=== PATIENT | female | born 1945 | race African-American/Black ===

== ENCOUNTER 2018-01-07 07:46 | Outpatient (CLI) | payer MEDICARE ==
--- NOTE | 2018-01-07 09:58 | CT ---
CT PULMONARY LUNG SCAN: Date: 01/07/18 HISTORY: Z12.2, encounter for screening for malignant neoplasm. COMPARISON: None. FINDINGS: Lung Screening Specifics (Lung-RADS): In the left upper lobe, there is a 5.0 x 6.0 x 5.0 mm fascicul ated nodule. No other suspicious pulmonary nodule is appreciated. Potentially Significant Incidentals (Lung-RADS Category S): Negative. Pulmonary Incidentals: Severe pulmonary emphysema. Mild bronchiectasis. Skeleton: No fracture. No malalignment. No suspicious lytic or blastic lesion. IMPRESSION: 1. Lung-RADS Category 3: Probably benign. Recommendation of a 6 month follow-up low dose CT of the 6.0 mm nodule left upper lobe. 2. Lung-RADS Category S: Negative. No new or suspicious findings requiring urgent additional evalua tion. 3. Other Incidentals: Moderate atherosclerotic plaque. POS: AILYN
== END 2018-01-07 07:47 | disposition home or self-care (01) ==
LOC: CT 07:46
PROVIDERS: ATTEND Internal Medicine Sleep Medicine
DX: Z12.2 Encounter for screening for malignant neoplasm of respiratory organs (principal); F17.210 Nicotine dependence, cigarettes, uncomplicated; I70.90 Unspecified atherosclerosis; R91.1 Solitary pulmonary nodule
CPT/HCPCS: G0297

== ENCOUNTER 2019-09-09 06:02 | Day surgery (SDC) | payer MEDICARE ==
[2019-09-08 11:23] VITALS: BMI 19.1
[2019-09-09] MEDS ORDERED: Bupivacaine PF 0.5% 30 ML VIAL ONE (06:48)
[2019-09-09] MEDS ORDERED: EPINEPHrine 1 MG/ML AMP ONE (06:48)
[2019-09-09] MEDS ORDERED: Fentanyl 100 MCG/2 ML VIAL ONE (06:56)
--- NOTE | 2019-09-09 07:06 | HP ---
HISTORY: Carmelita Canales is a very pleasant 74-year-old female with severe COPD, oxygen-dependent. The patient was seen by me almost a month ago with nausea, vomiting, and progressive weight loss. She lost more than 30 pounds. She is severely dehydrated. She was hospitalized at [facility] a month ago. She was rehydrated and underwent EGD, found to have an obstructing esophageal cancer of distal esophagus. Had gone for esophageal dilation. The stricture is very tight and nonyielding. Then she underwent balloon dilatation. Subsequently, she had dilation with Savary dilator sizes 9, 10, 11-Greenlandic. The lumen is very tight and could not completely open. The plan was dilation and PEG tube placement. However, unfortunately this could not be accomplished few days ago. The patient was advised to come back today for repeat EGD and dilation and possible PEG tube placement. The family and the patient were informed that if endoscopic PEG tube placement is not possible, she might need a laparoscopy-assisted G-tube placement. I did talk to Dr. Major Anderson and he is aware of this situation and he is available to go with the laparoscopy-assisted G-tube placement in case the endoscopic approach is not possible. ALLERGIES: SALAZAR INHIBITORS. MEDICAL ILLNESS: 1. Hypertension. 2. COPD. 3. Gout. 4. Hyperlipidemia. 5. Osteoarthritis. PHYSICAL EXAMINATION: GENERAL: She is thin built. VITAL SIGNS: Her weight is 120, pulse 76_blood pressure 120/78_ . CARDIOVASCULAR SYSTEM: First and second heart sounds normal. LUNGS: Clear to auscultation. ABDOMEN: soft, non tender, no masses_ EXTREMITIES: Reveal no edema. ADMITTING DIAGNOSES: 1. Esophageal obstruction. 2. Malignant esophageal stricture. 3. Weight loss. 4. Chronic obstructive pulmonary disease. PLAN: EGD and dilation of the malignant esophageal stricture_If the stricture can be dilated adequately, will place G tube. If it is not possible, patient will have laparoscopy- assisted G-tube placement by Dr. Anderson. Job ID: [id number] [facility]
[2019-09-09] MEDS ORDERED: Sodium Chloride 0.9% 0 ML ONE (08:55)
--- NOTE | 2019-09-09 10:43 | HP ---
SUBJECTIVE: Carmelita Canales is a 74-year-old black female with esophageal cancer that Dr. Lu has biopsied and on several occasions, attempted dilatation and PEG tube placement at [facility]. She now consents to PEG tube and Dr. Lu has asked me to be on standby for laparoscopic gastrostomy in the case that he cannot gain access to the esophagus. I have talked to the patient and the patient has seen Dr. Samuels and Dr. Chin. I communicated with Dr. Chin this morning and he does need a MediPort. I have discussed with the patient placement of a MediPort and she consents to placement of a MediPort. ALLERGIES: NONE. SOCIAL HISTORY: Tobacco, none for many years. Alcohol, none. MEDICATIONS: 1. Allopurinol. 2. Amlodipine. 3. Aspirin. 4. Atorvastatin. 5. Insulin. 6. Myrbetriq. 7. Montelukast. 8. Sodium. 9. Protonix. 10. Symbicort. PAST SURGICAL HISTORY: Urinary cyst surgery of some sort. PAST MEDICAL HISTORY: Insulin-dependent diabetes mellitus, 5 units subcu insulin a.m., held this morning. COPD, on inhalers p.r.n. Gout. Arthritis. Esophageal cancer, most recently diagnosed. The patient has lost from 140 pounds to 114 pounds. REVIEW OF SYSTEMS: Ten-point noncontributory. FAMILY HISTORY: Noncontributory. PHYSICAL EXAMINATION: VITAL SIGNS: Temperature 98.5, pulse 71, respiratory rate 18, and blood pressure 118/67. HEAD, EARS, EYES, NOSE, AND THROAT: Unremarkable. LUNGS: Clear to auscultation. CARDIAC: Regular rate and rhythm without murmur or gallop. ABDOMEN: Soft and nontender. No mass. EXTREMITIES: Unremarkable. She is cachectic and malnourished. No ankle edema. COVID negative. ASSESSMENT AND PLAN: 1. Esophageal cancer with malnutrition, weight loss, in need of IV access, antineoplastic chemotherapy access. I have discussed with Dr. Chin and she is in need of a MediPort. Plan, placement of a MediPort and if necessary, laparoscopic gastrostomy tube. I have talked to Dr. Lu, he is unable to secure her PEG tube. The patient is having trouble even swallowing her saliva at this time. 2. Insulin-dependent diabetes mellitus. 3. Gout. 4. Chronic obstructive pulmonary disease. 5. History of tobacco use decades ago. 6. Malnourishment. 7. Weight loss. Job ID: [id number]
[2019-09-09] MEDS ORDERED: Hydrocodone-Acetamin 15 ML UDCUP ONE (10:57)
[2019-09-09] MEDS ORDERED: Morphine 2 MG/ML SYRINGE ONE (11:23)
--- NOTE | 2019-09-09 11:52 | RAD ---
PORTABLE CHEST: HISTORY: MediPort placement. COMPARISON: No recent comparison. FINDINGS: An ET tube is in place with tip well above pardeep. A central line MediPort-type catheter has been placed via the right subclavian vein. This line overl ies the SVC with tip at the right atrium. The lungs appear clear of infiltrate. Heart size upper normal. Mild vascular engorgement. IMPRESSION: No acute process. Central line appears adequately positioned. POS: AGW
[2019-09-09] MEDS ORDERED: Succinylcholine Chloride 20 MG/ML 10 ml SYRINGE FS ONE (12:21)
[2019-09-09] MEDS ORDERED: PHENYLEPHRINE-NS 100 MCG/ML 10 ML SYRINGE ONE (12:21)
[2019-09-09] MEDS ORDERED: PROPOFOL 200 MG/20 ML VIAL ONE (12:21)
[2019-09-09] MEDS ORDERED: Ondansetron PF 4 MG/2 ML Vial ONE (12:21)
--- NOTE | 2019-09-09 14:46 | OP ---
DATE OF PROCEDURE: 09/09/2019 PROCEDURES PERFORMED: 1. Esophagogastroduodenoscopy. 2. Esophageal dilation at a size 12.8 cm with Savary dilators over the guidewire. 3. Percutaneous endoscopic gastrostomy tube placement. PREOPERATIVE DIAGNOSES: 1. Esophageal obstruction. 2. Malignant esophageal stricture. POSTOPERATIVE DIAGNOSES: 1. Esophageal obstruction. 2. Malignant esophageal stricture. DESCRIPTION OF PROCEDURE: The patient was intubated and was given sedation by Anesthesia Department. The patient was transferred to the fluoroscopy table. She was placed on the left lateral position. A Pentax video gastroscope under direct vision passed down the oropharynx past the upper esophageal sphincter into the esophagus. There was esophageal obstruction. The patient had a very tight esophageal stricture. The scope could not be advanced into the stomach. A Savary guidewire was placed into the stomach under fluoroscopy control. Fluoroscopy was used throughout the procedure to monitor the advancement of the Savary dilators. The Savary dilator sizes 11, 12, and subsequently 12.8 cm passed down over the guidewire under fluoroscopic guidance. There was mild resistance encountered.. Following the dilatation, the guidewire removed. The patient was re-scoped again. At this time, I was able to get the scope into the stomach. The esophageal lumen was still very tight. In the fundus and cardia, no pathology. In the gastric body, gastric antrum, and duodenum, no lesions. A G-tube site was marked by the transillumination within. The site was surgically cleaned and prepped. The site was anesthetized with 1% Xylocaine infiltration. Over the site, a size 16 Angiocath was advanced into the stomach. Through the Angiocath, a guidewire was advanced into the stomach. This was grasped with polypectomy snare and pulled outside the mouth. Through the end of the guidewire protruding outside the mouth, a gastrostomy tube was connected. The wire was pulled back retrograde, and the tube was left in place. The patient was re-scoped again to confirm proper placement of G-tube. No complication noted except for mild oozing of blood. The stomach decompressed and the scope removed. PLAN: The patient will have a Mediport catheter placement later on today and will be discharged home later on. She will be instructed how to use feeding tube before discharge. Job ID: [id number] [facility]
--- NOTE | 2019-09-09 15:30 | OP ---
DATE OF PROCEDURE: 09/09/2019 PREOPERATIVE DIAGNOSES: 1. Malnutrition. 2. Esophageal cancer. 3. Weight loss. 4. Esophageal obstruction symptoms. POSTOPERATIVE DIAGNOSES: 1. Malnutrition. 2. Esophageal cancer. 3. Weight loss. 4. Esophageal obstruction symptoms. PROCEDURES PERFORMED: 1. Low-profile MediPort, right subclavian vein. 2. X-ray use for placement (fluoroscopy unavailable). Note, Dr. Lu was able to place a PEG tube and a laparoscopic gastrostomy tube was not necessary on my part. DESCRIPTION OF PROCEDURE: The patient was taken to the operating room where under general anesthesia, after Dr. Lu had placed a PEG tube and after esophageal dilatation, her chest, shoulder, and neck were prepared with ChloraPrep and draped in routine fashion. Local anesthetic mixture of 0.5% Marcaine with epinephrine 30 mL infiltrated in the skin and subcutaneous tissue over the right chest and infraclavicular area, and trocar catheter cannulated in the subclavian vein, J-wire threaded, trocar catheter removed. Skin site was sharply and a subcutaneous pocket created with blunt and sharp dissection, noting good hemostasis. Dilator and Peel-Away sheath were placed over the J-wire in the subclavian vein. J-wire and dilator removed. Catheter placed with Peel-Away sheath, properly positioned, Peel-Away sheath removed. Fluoroscopically, the tip of the catheter was placed in optimal position in the superior vena cava, catheter was tailored to length, connected to the MediPort, placed in the subcutaneous pocket and secured with 2 interrupted sutures of 3-0 Prolene, and subcutaneous tissue was approximated with 3-0 Monocryl, and skin with subdermal 4-0 Monocryl. Chest x-ray obtained, revealed good MediPort and line placement. Buckley needle accessed the MediPort percutaneously and good return of venous blood obtained and MediPort flushed with heparinized saline solution. Sterile dressing applied and Dermabond. The patient tolerated the procedure well. Job ID: [id number]
== END 2019-09-09 14:45 | disposition home or self-care (01) ==
LOC: SDC 06:02
PROVIDERS: ATTEND Internal Medicine Gastroenterology
PROC: 0DH63UZ Insertion of Feeding Device into Stomach, Percutaneous Approach (ICD-10-PCS; principal; 2019-09-09)
PROC: 0D758ZZ Dilation of Esophagus, Via Natural or Artificial Opening Endoscopic (ICD-10-PCS; 2019-09-09)
PROC: 0JH60WZ Insertion of Totally Implantable Vascular Access Device into Chest Subcutaneous Tissue and Fascia, Open Approach (ICD-10-PCS; 2019-09-09)
PROC: 05H533Z Insertion of Infusion Device into Right Subclavian Vein, Percutaneous Approach (ICD-10-PCS; 2019-09-09)
PROC: B516ZZA Fluoroscopy of Right Subclavian Vein, Guidance (ICD-10-PCS; 2019-09-09)
DX: C15.5 Malignant neoplasm of lower third of esophagus (principal); K22.2 Esophageal obstruction; E11.9 Type 2 diabetes mellitus without complications; J44.9 Chronic obstructive pulmonary disease, unspecified; I10 Essential (primary) hypertension; M10.9 Gout, unspecified; E78.5 Hyperlipidemia, unspecified; M19.90 Unspecified osteoarthritis, unspecified site; E46 Unspecified protein-calorie malnutrition; Z68.1 Body mass index [BMI] 19.9 or less, adult; Z87.891 Personal history of nicotine dependence; Z79.4 Long term (current) use of insulin; Z79.82 Long term (current) use of aspirin; Z79.899 Other long term (current) drug therapy; Z99.81 Dependence on supplemental oxygen
CPT/HCPCS: 36561; 43246; 43248; 71045; 82962; C1788; 36416; J0171; J0690; J1642; J2270; J2405; J2704; J3010; S0020

== ENCOUNTER 2019-10-26 10:34 | Day surgery (SDC) | payer MEDICARE ==
[2019-10-26] MEDS ORDERED: diphenhydrAMINE 25 MG CAP PO PRN (10:52)
[2019-10-26] MEDS ORDERED: Acetaminophen 500 MG TAB PO PRN (10:52)
[2019-10-26] MEDS ORDERED: Sodium Chloride 0.9% 20 ML ONE (11:41)
[2019-10-26 12:53] VITALS: TEMP 97.9
[2019-10-26 15:07] VITALS: BP 141/65
== END 2019-10-26 15:06 | disposition home or self-care (01) ==
LOC: ONC/OP 10:34
PROVIDERS: ATTEND Internal Medicine Hematology & Oncology
PROC: 30233N1 Transfusion of Nonautologous Red Blood Cells into Peripheral Vein, Percutaneous Approach (ICD-10-PCS; principal; 2019-10-26)
DX: D64.9 Anemia, unspecified (principal)
CPT/HCPCS: 36430; 77386; 80053; 86850; 86900; 86901; J1642; P9016; Q0163